=== PATIENT | female | born 1930 | race Caucasian/White ===

== ENCOUNTER 2017-10-07 23:43 | Inpatient (IN) | payer OTHER ==
[~2017-10-07] VITALS: Ht 152.4 cm; Wt 61.8 kg
[2017-10-07] MEDS ORDERED: IPRATROPIUM BROMIDE 0.5 MG/2.5 ML NEB SOLUTION NEB ONE (23:45)
[2017-10-07] MEDS ORDERED: ALBUTEROL SULFATE 5 MG/ML 20 ML NEB SOLN [BULK] NEB ONE (23:45)
[2017-10-07] MEDS ORDERED: 0.9% SODIUM CHLORIDE 5 ML NEB SOLUTION NEB ONE (23:48)
[2017-10-07] MEDS ORDERED: TRAM50TA4 PO (23:51)
[2017-10-07] MEDS ORDERED: LEVO100 PO (23:51)
[2017-10-07] MEDS ORDERED: PREG75 PO (23:51)
[2017-10-07] MEDS ORDERED: ALBU8HFA IH (23:51)
[2017-10-07] MEDS ORDERED: ATOR10TA84 PO (23:51)
[2017-10-07] MEDS ORDERED: FOLI1 PO (23:51)
[2017-10-07] MEDS ORDERED: OMEP20 PO (23:51)
[2017-10-07] MEDS ORDERED: PROP40TA7 PO (23:51)
[2017-10-08 00:04] LABS: BASOPHILS % (AUTO) 0.4 % (0.0-2.0); EOSINOPHILS % (AUTO) 2.4 % (1.0-6.0); HEMATOCRIT 29.2 % (36-46); HEMOGLOBIN 9.8 g/dL (12.0-16.0); LYMPHOCYTES # (AUTO) 1.5 K/uL (1.0-4.8); LYMPHOCYTES % (AUTO) 16.9 % (22.0-44.0); MEAN CORPUSCULAR HEMOGLOBIN 29.1 pg (26.0-34.0); MEAN CORPUSCULAR HGB CONC 33.8 G/dL (31.0-37.0); MEAN CORPUSCULAR VOLUME 86 fL (80-100); MONOCYTES # (AUTO) 0.7 K/uL (0.1-1.0); NEUTROPHILS # (AUTO) 6.3 K/uL (1.8-7.7); NEUTROPHILS % (AUTO) 72.3 % (40.0-70.0); PLATELET COUNT (AUTO) 304 K/uL (150-450); RED BLOOD CELL COUNT(AUTO) 3.38 MIL/uL (4.00-5.20); RED CELL DISTRIBUTION WIDTH 15.9 % (11.5-14.5)
[2017-10-08 00:15] LABS: CALCIUM, TOTAL 8.8 mg/dL (8.8-10.5); CREATININE 1.05 mg/dL (0.60-1.30); POTASSIUM 4.1 mmol/L (3.5-5.1)
[2017-10-08 00:21] LABS: ALBUMIN 2.5 g/dL (3.4-5.0); BILIRUBIN,TOTAL 0.4 mg/dL (0.1-1.0); TOTAL PROTEIN, SERUM 6.9 g/dL (6.4-8.2)
[2017-10-08] MEDS ORDERED: IPRATROPIUM BROMIDE 0.5 MG/2.5 ML NEB SOLUTION NEB ONE ×3 (01:15→01:30)
[2017-10-08] MEDS ORDERED: ALBUTEROL SULFATE 5 MG/ML 20 ML NEB SOLN [BULK] NEB ONE ×2 (01:15→01:30)
[2017-10-08] MEDS ORDERED: 0.9% SODIUM CHLORIDE 5 ML NEB SOLUTION NEB ONE (01:34)
[2017-10-08] MEDS ORDERED: AZITHROMYCIN 500 MG/NS 250 ML IV ONE (05:15)
[2017-10-08] MEDS ORDERED: CefTRIAXone 1 GM/DEXTROSE 50 ML IV ONE (05:15)
[2017-10-08] MEDS ORDERED: ONDANSETRON HCL 4 MG/2 ML VIAL IVP PRN ×2 (05:30→17:00)
[2017-10-08] MEDS ORDERED: 0.9% SODIUM CHLORIDE 10 ML SYRINGE IVP PRN (05:30)
[2017-10-08] MEDS ORDERED: ACETAMINOPHEN 325 MG TABLET PO PRN (05:30)
[2017-10-08 05:41] LABS: INFLUENZA TYPE A NEGATIVE FOR TYPE A (NEGATIVE); INFLUENZA TYPE B NEGATIVE FOR TYPE B (NEGATIVE)
[2017-10-08 08:41] VITALS: BP 157/67
[2017-10-08 11:25] VITALS: BP 134/68
[2017-10-08 15:00] VITALS: BP 148/68
[2017-10-08] MEDS ORDERED: BISACODYL 10 MG RECTAL RECTAL SUPPOSITORY PR PRN (17:00)
[2017-10-08] MEDS ORDERED: HYDROCODONE/ACETAMINOPHEN 5-325 MG TABLET PO PRN (17:00)
[2017-10-08] MEDS ORDERED: MAGNESIUM HYDROXIDE SUSPENSION 30 ML UDCUP PO PRN (17:00)
[2017-10-08] MEDS ORDERED: ZOLPIDEM TARTRATE 5 MG TABLET PO PRN (17:00)
[2017-10-08] MEDS ORDERED: MORPHINE SULFATE 2 MG/ML SYRINGE IVP PRN (17:00)
[2017-10-08] MEDS ORDERED: SODIUM CHLORIDE 0.9% 1,000 ML IV ONE (18:39)
[2017-10-08 19:32] VITALS: BP 137/79
[2017-10-08] MEDS: PREGABALIN 75 MG CAPSULE PO SCH (20:14)
[2017-10-08] MEDS ORDERED: INFLUENZA VIRUS VACCINE QVS 2017-18 (3YR+)/PF 60 MCG/0.5 ML SYRINGE IM ONE (20:15)
[2017-10-08] MEDS: BENZONATATE 100 MG CAPSULE PO SCH (20:15)
[2017-10-08] MEDS: DOCUSATE SODIUM 100 MG CAPSULE PO SCH (20:15)
[2017-10-08] MEDS: MethylPREDNISolone SOD SUCC 125 MG/2 ML VIAL IVP SCH (20:15)
[2017-10-08] MEDS: BUDESONIDE 0.5 MG/2 ML NEB SOLUTION NEB SCH (21:00)
[2017-10-08] MEDS: FLUTICASONE PROPIONATE 50 MCG/SPRAY 16 GM NASAL SPRAY NASAL SCH (22:12)
[2017-10-08] MEDS: PIPERACILLIN/TAZO 3.375 GM/D5W 50 ML IV SCH (23:54)
[2017-10-09] MEDS: BENZONATATE 100 MG CAPSULE PO SCH ×4 (00:01→23:21)
[2017-10-09] MEDS: MethylPREDNISolone SOD SUCC 125 MG/2 ML VIAL IVP SCH ×5 (00:01→23:21)
[2017-10-09] MEDS: HEPARIN SODIUM,PORCINE 5,000 UNITS/ML VIAL SQ SCH ×4 (00:01→23:21)
[2017-10-09 00:22] VITALS: BP 161/78
[2017-10-09] MEDS: TraMADol HCL 50 MG TABLET PO PRN (00:33)
[2017-10-09] MEDS: PIPERACILLIN/TAZO 3.375 GM/D5W 50 ML IV SCH ×4 (05:27→23:21)
[2017-10-09] MEDS: LEVOTHYROXINE SODIUM 100 MCG TABLET PO SCH (05:28)
[2017-10-09 07:09] VITALS: BP 152/85
[2017-10-09] MEDS: BUDESONIDE 0.5 MG/2 ML NEB SOLUTION NEB SCH ×2 (07:59→20:22)
[2017-10-09] MEDS: DOCUSATE SODIUM 100 MG CAPSULE PO SCH ×2 (08:24→21:15)
[2017-10-09] MEDS: FLUTICASONE PROPIONATE 50 MCG/SPRAY 16 GM NASAL SPRAY NASAL SCH ×2 (08:24→21:15)
[2017-10-09] MEDS: FOLIC ACID 1 MG TABLET PO SCH (08:24)
[2017-10-09] MEDS: ATORVASTATIN CALCIUM 10 MG TABLET PO SCH (08:24)
[2017-10-09] MEDS: PANTOPRAZOLE SODIUM 40 MG/VIAL IVP SCH (08:24)
[2017-10-09] MEDS: OMEPRAZOLE 20 MG CAPSULE PO SCH (08:25)
[2017-10-09] MEDS: PREGABALIN 75 MG CAPSULE PO SCH ×2 (08:30→21:15)
[2017-10-09 08:46] VITALS: BP 153/79
[2017-10-09 12:30] VITALS: BP 143/59
[2017-10-09] MEDS: ACETAMINOPHEN 325 MG TABLET PO PRN (12:36)
[2017-10-09 16:27] VITALS: BP 145/74
[2017-10-09 20:19] VITALS: BP 161/85
[2017-10-09] MEDS: IPRATROPIUM BROMIDE 0.5 MG/2.5 ML NEB SOLUTION NEB PRN (20:22)
[2017-10-09] MEDS: ALBUTEROL SULFATE 2.5 MG/0.5 ML NEB SOLUTION NEB PRN (20:22)
[2017-10-10] VITALS (7 sets, daily range): BP systolic 145–180; BP diastolic 54–94
[2017-10-10] MEDS: PIPERACILLIN/TAZO 3.375 GM/D5W 50 ML IV SCH ×4 (05:33→23:22)
[2017-10-10] MEDS: MethylPREDNISolone SOD SUCC 125 MG/2 ML VIAL IVP SCH ×4 (05:33→23:22)
[2017-10-10] MEDS: LEVOTHYROXINE SODIUM 100 MCG TABLET PO SCH (06:09)
[2017-10-10] MEDS: FLUTICASONE PROPIONATE 50 MCG/SPRAY 16 GM NASAL SPRAY NASAL SCH ×2 (08:48→20:57)
[2017-10-10] MEDS: FOLIC ACID 1 MG TABLET PO SCH (08:48)
[2017-10-10] MEDS: PREGABALIN 75 MG CAPSULE PO SCH ×2 (08:48→20:57)
[2017-10-10] MEDS: ATORVASTATIN CALCIUM 10 MG TABLET PO SCH (08:48)
[2017-10-10] MEDS: BENZONATATE 100 MG CAPSULE PO SCH ×3 (08:48→23:22)
[2017-10-10] MEDS: HEPARIN SODIUM,PORCINE 5,000 UNITS/ML VIAL SQ SCH ×3 (08:48→23:22)
[2017-10-10] MEDS: PANTOPRAZOLE SODIUM 40 MG/VIAL IVP SCH (08:48)
[2017-10-10] MEDS: OMEPRAZOLE 20 MG CAPSULE PO SCH (08:48)
[2017-10-10] MEDS: MULTIVITAMINS WITH MINERALS, THERAPEUTIC TABLET PO SCH (08:49)
[2017-10-10] MEDS: DOCUSATE SODIUM 100 MG CAPSULE PO SCH ×2 (08:49→20:59)
[2017-10-10] MEDS: BUDESONIDE 0.5 MG/2 ML NEB SOLUTION NEB SCH ×2 (10:39→21:08)
[2017-10-10] MEDS: ALBUTEROL SULFATE 2.5 MG/0.5 ML NEB SOLUTION NEB PRN (10:43)
[2017-10-10] MEDS: IPRATROPIUM BROMIDE 0.5 MG/2.5 ML NEB SOLUTION NEB PRN (10:43)
[2017-10-10 16:24] LABS: EOSINOPHILS % (AUTO) 0 % (1.0-6.0); HEMATOCRIT 29.2 % (36-46); HEMOGLOBIN 9.6 g/dL (12.0-16.0); LYMPHOCYTES % (AUTO) 6.1 % (22.0-44.0); MEAN CORPUSCULAR HEMOGLOBIN 28.6 pg (26.0-34.0); MEAN CORPUSCULAR HGB CONC 32.9 G/dL (31.0-37.0); MEAN CORPUSCULAR VOLUME 87 fL (80-100); MONOCYTES # (AUTO) 0.2 K/uL (0.1-1.0); MONOCYTES % (AUTO) 1.4 % (2.0-9.0); NEUTROPHILS # (AUTO) 14.5 K/uL (1.8-7.7); PLATELET COUNT (AUTO) 315 K/uL (150-450); RED BLOOD CELL COUNT(AUTO) 3.36 MIL/uL (4.00-5.20); RED CELL DISTRIBUTION WIDTH 15.9 % (11.5-14.5)
[2017-10-10 16:44] LABS: CALCIUM, TOTAL 9.3 mg/dL (8.8-10.5); CREATININE 1.15 mg/dL (0.60-1.30); POTASSIUM 3.4 mmol/L (3.5-5.1)
[2017-10-10 16:45] LABS: NEUTROPHILS % (AUTO) 92.4 % (40.0-70.0)
[2017-10-10 16:50] LABS: ALBUMIN 2.5 g/dL (3.4-5.0); BILIRUBIN,TOTAL 0.4 mg/dL (0.1-1.0); TOTAL PROTEIN, SERUM 6.8 g/dL (6.4-8.2)
[2017-10-10] MEDS ORDERED: POTASSIUM CHL 10 MEQ/WATER 50 ML IV PRN (18:00)
[2017-10-10] MEDS: POTASSIUM CHLORIDE 20 MEQ ER TABLET PO PRN (18:14)
[2017-10-10] MEDS: TraMADol HCL 50 MG TABLET PO PRN (20:57)
[2017-10-10] MEDS: HydrALAZINE HCL 25 MG TABLET PO SCH (22:25)
[2017-10-10] MEDS: SODIUM CHLORIDE 0.45% 1,000 ML IV SCH (22:26)
[2017-10-11] MEDS: POTASSIUM CHLORIDE 20 MEQ ER TABLET PO PRN (01:40)
[2017-10-11 04:21] VITALS: BP 173/83
[2017-10-11] MEDS: PIPERACILLIN/TAZO 3.375 GM/D5W 50 ML IV SCH ×3 (05:39→17:29)
[2017-10-11] MEDS: MethylPREDNISolone SOD SUCC 125 MG/2 ML VIAL IVP SCH ×3 (05:39→19:00)
[2017-10-11] MEDS: LEVOTHYROXINE SODIUM 100 MCG TABLET PO SCH (05:40)
[2017-10-11 05:57] LABS: BASOPHILS % (AUTO) 0.1 % (0.0-2.0); EOSINOPHILS % (AUTO) 0 % (1.0-6.0); HEMATOCRIT 30.1 % (36-46); LYMPHOCYTES # (AUTO) 1.2 K/uL (1.0-4.8); LYMPHOCYTES % (AUTO) 9.1 % (22.0-44.0); MEAN CORPUSCULAR HEMOGLOBIN 28.8 pg (26.0-34.0); MEAN CORPUSCULAR HGB CONC 33.3 G/dL (31.0-37.0); MEAN CORPUSCULAR VOLUME 87 fL (80-100); MONOCYTES # (AUTO) 0.4 K/uL (0.1-1.0); MONOCYTES % (AUTO) 2.9 % (2.0-9.0); NEUTROPHILS # (AUTO) 11.8 K/uL (1.8-7.7); PLATELET COUNT (AUTO) 292 K/uL (150-450); RED BLOOD CELL COUNT(AUTO) 3.48 MIL/uL (4.00-5.20); RED CELL DISTRIBUTION WIDTH 15.7 % (11.5-14.5)
[2017-10-11 06:14] LABS: NEUTROPHILS % (AUTO) 87.9 % (40.0-70.0)
[2017-10-11 06:22] LABS: ALBUMIN 2.6 g/dL (3.4-5.0); BILIRUBIN,TOTAL 0.6 mg/dL (0.1-1.0); CALCIUM, TOTAL 9.3 mg/dL (8.8-10.5); CREATININE 0.97 mg/dL (0.60-1.30); POTASSIUM 4.2 mmol/L (3.5-5.1); TOTAL PROTEIN, SERUM 6.8 g/dL (6.4-8.2)
[2017-10-11] MEDS: BUDESONIDE 0.5 MG/2 ML NEB SOLUTION NEB SCH ×2 (08:23→21:32)
[2017-10-11 08:50] VITALS: BP 195/68
[2017-10-11] MEDS: HEPARIN SODIUM,PORCINE 5,000 UNITS/ML VIAL SQ SCH ×2 (10:03→17:29)
[2017-10-11] MEDS: PREGABALIN 75 MG CAPSULE PO SCH ×2 (10:03→20:43)
[2017-10-11] MEDS: ATORVASTATIN CALCIUM 10 MG TABLET PO SCH (10:04)
[2017-10-11] MEDS: FOLIC ACID 1 MG TABLET PO SCH (10:04)
[2017-10-11] MEDS: DOCUSATE SODIUM 100 MG CAPSULE PO SCH ×2 (10:04→20:45)
[2017-10-11] MEDS: OMEPRAZOLE 20 MG CAPSULE PO SCH (10:04)
[2017-10-11] MEDS: HydrALAZINE HCL 25 MG TABLET PO SCH ×2 (10:04→20:43)
[2017-10-11] MEDS: FLUTICASONE PROPIONATE 50 MCG/SPRAY 16 GM NASAL SPRAY NASAL SCH ×2 (10:05→20:43)
[2017-10-11] MEDS: PANTOPRAZOLE SODIUM 40 MG/VIAL IVP SCH (10:05)
[2017-10-11] MEDS: MULTIVITAMINS WITH MINERALS, THERAPEUTIC TABLET PO SCH (10:27)
[2017-10-11 12:32] VITALS: BP 154/83
[2017-10-11] MEDS: BENZONATATE 100 MG CAPSULE PO SCH ×2 (15:31→19:00)
[2017-10-11 16:16] VITALS: BP 143/86
[2017-10-11] MEDS: SODIUM CHLORIDE 0.45% 1,000 ML IV SCH (20:44)
[2017-10-11 20:59] VITALS: BP 204/69
[2017-10-11] MEDS: ALBUTEROL SULFATE 2.5 MG/0.5 ML NEB SOLUTION NEB PRN (21:32)
[2017-10-11] MEDS: IPRATROPIUM BROMIDE 0.5 MG/2.5 ML NEB SOLUTION NEB PRN (21:32)
[2017-10-11 22:08] VITALS: BP 159/83
[2017-10-12 00:11] VITALS: BP 118/85
[2017-10-12] MEDS ORDERED: AMIODARONE HCL 360 MG in DEXTROSE 5%-WATER 242.8 ML IV ONE (00:15)
[2017-10-12] MEDS ORDERED: AMIODARONE HCL 150 MG in DEXTROSE 5%-WATER 97 ML IV ONE (00:15)
[2017-10-12] MEDS: PIPERACILLIN/TAZO 3.375 GM/D5W 50 ML IV SCH ×4 (00:25→18:00)
[2017-10-12] MEDS: MethylPREDNISolone SOD SUCC 125 MG/2 ML VIAL IVP SCH ×4 (00:25→18:51)
[2017-10-12] MEDS: BENZONATATE 100 MG CAPSULE PO SCH ×3 (00:26→17:15)
[2017-10-12] MEDS: HEPARIN SODIUM,PORCINE 5,000 UNITS/ML VIAL SQ SCH ×3 (00:26→17:18)
[2017-10-12 00:31] LABS: CREATINE KINASE, TOTAL 33 U/L (26-192)
[2017-10-12 01:45] VITALS: BP 144/55
[2017-10-12] MEDS: SODIUM CHLORIDE 0.45% 1,000 ML IV SCH ×2 (02:46→14:00)
[2017-10-12 05:33] VITALS: BP 145/100
[2017-10-12] MEDS: LEVOTHYROXINE SODIUM 100 MCG TABLET PO SCH (05:39)
[2017-10-12] MEDS ORDERED: AMIODARONE HCL 540 MG in DEXTROSE 5%-WATER 239.2 ML IV ONE (06:15)
[2017-10-12 07:54] VITALS: BP 153/90
[2017-10-12] MEDS: BUDESONIDE 0.5 MG/2 ML NEB SOLUTION NEB SCH (08:05)
[2017-10-12] MEDS: PREGABALIN 75 MG CAPSULE PO SCH (09:09)
[2017-10-12] MEDS: PANTOPRAZOLE SODIUM 40 MG/VIAL IVP SCH (09:10)
[2017-10-12] MEDS: OMEPRAZOLE 20 MG CAPSULE PO SCH (09:10)
[2017-10-12] MEDS: HydrALAZINE HCL 25 MG TABLET PO SCH (09:10)
[2017-10-12] MEDS: DOCUSATE SODIUM 100 MG CAPSULE PO SCH (09:10)
[2017-10-12] MEDS: FLUTICASONE PROPIONATE 50 MCG/SPRAY 16 GM NASAL SPRAY NASAL SCH (09:10)
[2017-10-12] MEDS: FOLIC ACID 1 MG TABLET PO SCH (09:10)
[2017-10-12] MEDS: MULTIVITAMINS WITH MINERALS, THERAPEUTIC TABLET PO SCH (09:10)
[2017-10-12] MEDS: ATORVASTATIN CALCIUM 10 MG TABLET PO SCH (09:10)
[2017-10-12 09:34] LABS: ALANINE AMINOTRANSFERASE 43 U/L (12-78); ALBUMIN 2.6 g/dL (3.4-5.0); ALKALINE PHOSPHATASE 62 U/L (46-116); ANION GAP 7 mmol/L (8-16); ASPARTATE AMINOTRANSFERASE 25 U/L (15-37); BILIRUBIN,TOTAL 0.8 mg/dL (0.1-1.0); CALCIUM, TOTAL 9.2 mg/dL (8.8-10.5); CARBON DIOXIDE 32 mmol/L (22-29); CHLORIDE 103 mmol/L (98-107); CREATINE KINASE, TOTAL 28 U/L (26-192); CREATININE 1.07 mg/dL (0.60-1.30); GLOMERULAR FILTR. RATE CALC 49 mL/min (>60); GLUCOSE,RANDOM 202 mg/dL (70-110); POTASSIUM 3.3 mmol/L (3.5-5.1); SODIUM SERUM 142 mmol/L (136-145); TOTAL PROTEIN, SERUM 6.8 g/dL (6.4-8.2); UREA NITROGEN, BLOOD 21 mg/dL (7-18)
[2017-10-12 11:21] LABS: EOSINOPHILS % (AUTO) 0 % (1.0-6.0); HEMATOCRIT 34.6 % (36-46); HEMOGLOBIN 11.6 g/dL (12.0-16.0); LYMPHOCYTES # (AUTO) 0.8 K/uL (1.0-4.8); LYMPHOCYTES % (AUTO) 8.7 % (22.0-44.0); MEAN CORPUSCULAR HEMOGLOBIN 28.7 pg (26.0-34.0); MEAN CORPUSCULAR HGB CONC 33.5 G/dL (31.0-37.0); MEAN CORPUSCULAR VOLUME 86 fL (80-100); MONOCYTES # (AUTO) 0.1 K/uL (0.1-1.0); MONOCYTES % (AUTO) 0.7 % (2.0-9.0); PLATELET COUNT (AUTO) 325 K/uL (150-450); RED BLOOD CELL COUNT(AUTO) 4.04 MIL/uL (4.00-5.20); RED CELL DISTRIBUTION WIDTH 15.8 % (11.5-14.5)
[2017-10-12 11:24] LABS: NEUTROPHILS % (AUTO) 90.6 % (40.0-70.0)
[2017-10-12 11:28] VITALS: BP 132/75
[2017-10-12] MEDS ORDERED: POTASSIUM CHLORIDE 20 MEQ ER TABLET PO ONE (12:15)
[2017-10-12] MEDS ORDERED: METOPROLOL TARTRATE 25 MG TABLET PO SCH (12:30)
[2017-10-12 15:20] VITALS: BP 162/84
[2017-10-12 15:46] LABS: CREATINE KINASE, TOTAL 33 U/L (26-192)
[2017-10-12] MEDS ORDERED: PROPRANOLOL HCL 40 MG TABLET PO SCH ×2 (16:00→18:30)
[2017-10-12] MEDS: ACETAMINOPHEN 325 MG TABLET PO PRN (17:15)
[2017-10-12] MEDS ORDERED: LEVOFLOXACIN 250 MG TABLET PO ONE (18:45)
[2017-10-12] MEDS ORDERED: GUAIF10 PO (18:57)
[2017-10-12] MEDS ORDERED: BENZ-51 PO (18:57)
[2017-10-12] MEDS ORDERED: FLUT16H NASAL (18:58)
[2017-10-12] MEDS ORDERED: LEVO750T21 PO (18:59)
[2017-10-12] MEDS ORDERED: HYDR25TA84 PO (18:59)
[2017-10-13] MEDS ORDERED: AMIODARONE HCL 750 MG in DEXTROSE 5%-WATER 485 ML IV SCH (00:12)
== END 2017-10-12 19:50 | disposition home or self-care (01) | DRG 193 ==
LOC: EMS 23:45 → 4E 10-08 05:00 → 5N 10-12 01:00
PROVIDERS: ADMIT Hospitalist; ATTEND Hospitalist
DX: J18.9 Pneumonia, unspecified organism (principal); J96.90 Respiratory failure, unspecified, unspecified whether with hypoxia or hypercapnia; J44.1 Chronic obstructive pulmonary disease with (acute) exacerbation; J90 Pleural effusion, not elsewhere classified; J98.11 Atelectasis; J44.0 Chronic obstructive pulmonary disease with (acute) lower respiratory infection; I25.10 Atherosclerotic heart disease of native coronary artery without angina pectoris; K21.9 Gastro-esophageal reflux disease without esophagitis; E03.9 Hypothyroidism, unspecified; G89.29 Other chronic pain; E78.5 Hyperlipidemia, unspecified; I10 Essential (primary) hypertension; I48.91 Unspecified atrial fibrillation; K44.9 Diaphragmatic hernia without obstruction or gangrene; Z90.2 Acquired absence of lung [part of]; Z92.21 Personal history of antineoplastic chemotherapy; Z82.49 Family history of ischemic heart disease and other diseases of the circulatory system; Z85.118 Personal history of other malignant neoplasm of bronchus and lung; Z95.0 Presence of cardiac pacemaker; Z79.899 Other long term (current) drug therapy
CPT/HCPCS: 71250; 84132; 87040; 87804; 93005; 94640; 94644; 94645; 96365; 96375; 97162; 97530; 99285; C9113; J0282; J0456; J0696; J1644; J2270; J2543; J2930; J7030; J7060